=== PATIENT | male | born 1985 | race Caucasian/White ===

== ENCOUNTER 2018-01-17 23:19 | Emergency (ER) | payer OTHER ==
[~2018-01-17] VITALS: Ht 180.3 cm; Wt 97.7 kg
[~2018-01-17 23:19] MED LIST: ESCI10TA17 PO
[2018-01-17 23:32] VITALS: TEMP 36.7; Ht 180.3 cm; Wt 97.7 kg
[2018-01-18] MEDS ORDERED: ATIVAN 1MG HOMEPACK PO ONE
[2018-01-18] MEDS ORDERED: LORA-741 PO (00:12)
--- NOTE | 2018-01-18 00:15 | EMERGENCY ROOM VISIT NOTE ---
History First contact with patient: 23:42 Chief Complaint: ANXIETY Stated Complaint: PANIC ATTACK/ANXIETY TENSION History of Present Illness The patient is a 32 year old male who presents to the Emergency Room with complaints of worsening anxiety and panic attacks. The patient states he has a history of anxiety. He states that approximately 3 hours prior to arrival, he began feeling nausea, tightness in his chest and tension in his jaw. He states these are the same symptoms he has had in the past with anxiety. He tried to relax at home but was unable to manage his symptoms. He states the symptoms are fluctuating since they started. He does state he has had increased anxiety over the past few weeks. He does have some stress in his life. He states that in the past he has been on medication for anxiety. He was on bupropion most recently and weaned himself off this medication about 1.5 years ago. He no longer takes any medication for his anxiety. The patient denies any increased depression, suicidal or homicidal ideations. Review of Systems A complete 10 point review of systems was reviewed with the patient with pertinent positives and negatives as per history of present illness. All else were negative. Past Medical/Surgical History Medical Problems: (1) Anxiety (2) Depression (3) Panic attack Surgical Problems: (1) History of tonsillectomy Family History Anxiety disorder FH: cancer FH: depression Hypertension Social History Smoking Status: Never Smoker Alcohol Use: occasionally Marital Status: in relationship Housing Status: lives with significant other Occupation Status: employed Current/Historical Medications Scheduled PRN Escitalopram (Lexapro), 10 MG PO DAILY PRN for Anxiety Lorazepam (Ativan), 1-2 TAB PO Q6H PRN for Anxiety Physical Exam Vital Signs Date Time Temp Pulse Resp B/P (MAP) Pulse Ox O2 Delivery O2 Flow Rate FiO2 01/18/18 00:21 84 16 119/86 98 01/17/18 23:32 36.7 64 16 142/84 97 Room Air Physical Exam VITALS: Vitals are noted on the nurse's note and reviewed by myself. Vital signs stable. GENERAL: This is a 32-year-old male, in no acute distress, nondiaphoretic, well- developed well-nourished. SKIN: The skin was without rashes. HEAD: Normocephalic atraumatic. EARS: External auditory canals clear, tympanic membranes pearly michel without erythema or effusion bilaterally. EYES: Pupils equal round and reactive to light and accommodation. MOUTH: Mucous membranes moist. Tonsils are not enlarged. Pharynx without erythema or exudate. NECK: Supple without nuchal rigidity. No lymphadenopathy. HEART: Regular rate and rhythm without murmurs gallops or rubs. LUNGS: Clear to auscultation bilaterally without wheezes, rales or rhonchi. NEURO: Patient was alert and oriented to person place and time. PSYCH: Normal affect, slightly anxious appearing. Medical Decision & Procedures Medical Decision Differential diagnosis includes anxiety, depression, dehydration, electrolyte abnormality, ACS, among others. The patient was evaluated as above. He presents with worsening symptoms of anxiety as well as symptoms of panic attacks. Patient has had issues with this in the past and has been on medication previously. He weaned himself off of this medication about 1 year ago. He feels that his symptoms are worsening and he needs to be placed back on medication. The patient was given a home pack and small prescription for Ativan to help manage his symptoms until he is able to see his primary care provider and restart his daily medication. Discussed the importance of follow-up with PCP/psychiatry. The patient verbalized his understanding of my assessment and treatment plan was discharged home in good condition. Medication Reconcilliation Current Medication List: was personally reviewed by me Blood Pressure Screening Patient's blood pressure: Normal blood pressure Impression Primary Impression: Acute anxiety Departure Information Dispostion Home / Self-Care Condition GOOD Prescriptions Lorazepam (ATIVAN) 0.5 Mg Tab 1-2 TAB PO Q6H Y for Anxiety, #12 TAB Prov: Karen Cantrell ., ABDIFATAH 01/18/18 Referrals No Doctor, Assigned (PCP) Patient Instructions My [facility] Additional Instructions Lorazepam (Ativan): Take 1-2 tablets as needed for anxiety. Be aware that this is a benzodiazepine medication and will make you drowsy. You are not able to drive or drink alcohol while taking this medication. Make sure to follow-up very closely with her primary care provider for evaluation. Return to the emergency department with worsening anxiety, worsening depression , or any thoughts of suicide/homicide, or any other new/concerning symptoms.
[2018-01-18 00:21] VITALS: BP 119/86; PULSE 84; O2SAT 98
== END 2018-01-18 00:21 | disposition home or self-care (01) ==
LOC: C.EDB 23:21 → C.EDA 01-18 00:21
DX: F41.9 Anxiety disorder, unspecified (principal); F32.9 Major depressive disorder, single episode, unspecified; Z80.9 Family history of malignant neoplasm, unspecified; Z82.49 Family history of ischemic heart disease and other diseases of the circulatory system; Z81.8 Family history of other mental and behavioral disorders; Z79.899 Other long term (current) drug therapy